=== PATIENT | female | born 1975 | race Two or more races ===

== ENCOUNTER 2021-05-15 15:23 | Emergency (ER) | payer OTHER ==
[~2021-05-15] VITALS: Ht 152.4 cm; Wt 90.9 kg
[2021-05-15 15:42] VITALS: BP 116/66
--- NOTE | 2021-05-15 16:16 | PHYS DOC ---
Past Medical History Smoking Status: Never Smoker Alcohol Use: None General Adult EDM: Chief Complaint: MECHANICAL FALL HPI: HPI: Patient is a 45-year-old female who presents to the emergency department for a fall. Patient reports that on April 26 she was at work and slipped and fell backwards. She reports that she did have a loss of consciousness following the episode. She is reporting low back pain and left-sided neck pain. She rates her pain 5 out of 10. No treatment prior to arrival. She reports that the pain is worse with movement. Patient reports that her boss was on vacation and came back to work and told her she must be evaluated for this. Patient denies any loss of bowel or bladder or saddle anesthesias. Patient is ambulatory with a steady gait. Review of Systems: Review of Systems: Constitutional: negative unless reported in HPI Eyes: negative unless reported in HPI HENT: negative unless reported in HPI Respiratory: negative unless reported in HPI Cardiovascular: negative unless reported in HPI GI: negative unless reported in HPI : negative unless reported in HPI Musculoskeletal: negative unless reported in HPI Integument: negative unless reported in HPI Neurologic: negative unless reported in HPI Endocrine: negative unless reported in HPI Lymphatic: negative unless reported in HPI Psychiatric: negative unless reported in HPI Heart Score: C/O Chest Pain: N/A Risk Factors: Risk Factors: DM, Current or recent (<one month) smoker, HTN, HLP, family history of CAD, obesity. Risk Scores: Score 0 - 3: 2.5% MACE over next 6 weeks - Discharge Home Score 4 - 6: 20.3% MACE over next 6 weeks - Admit for Clinical Observation Score 7 - 10: 72.7% MACE over next 6 weeks - Early Invasive Strategies Allergies: Allergies: Allergies Coded Allergies Type Severity Reaction Last Updated Verified No Known Drug Allergies 05/15/21 No Physical Exam: PE: Constitutional: Well developed, well nourished, no acute distress, non-toxic appearance. [] HENT: Normocephalic, atraumatic, bilateral external ears normal, oropharynx moist, no oral exudates, nose normal. [] Eyes: PERRL, EOMI, conjunctiva normal, no discharge. [] Neck: Normal range of motion, no bony spinal tenderness, left-sided paracervical spinal tenderness with palpation, no step-offs or deformities, supple, no stridor. [] Cardiovascular:Heart rate regular rhythm, no murmur [] Lungs & Thorax: Bilateral breath sounds clear to auscultation [] Abdomen: Bowel sounds normal, soft, no tenderness, no masses, no pulsatile masses. [] Skin: Warm, dry, no erythema, no rash. [] Back: Normal range of motion, no bony spinal tenderness Extremities: No tenderness, no cyanosis, no clubbing, ROM intact, no edema. [] Neurologic: Alert and oriented X 3, normal motor function, normal sensory function, no focal deficits noted. [] Psychologic: Affect normal, judgement normal, mood normal. [] EKG: EKG: [] Radiology/Procedures: Radiology/Procedures: []PROCEDURE: CT HEAD AND CERVICAL SPINE WO CT HEAD AND C-SPINE WO History: fall on 04/26/21, head injury, loc Comparison: None. Technique: Noncontrast CT of the head and cervical spine. Findings: CT HEAD: There is no evidence for intracranial mass or hemorrhage. There is no hydrocephalus or midline shift. No abnormal extra-axial fluid collections are present. No evidence of acute territorial infarction. The visualized paranasal sinuses and mastoid air cells are clear. The skull and scalp are within normal limits. CT CERVICAL SPINE: There is no evidence for fracture in the cervical spine. Alignment is normal. Disc spaces are preserved. No destructive osseous lesions are seen. Limited evaluation of the soft tissues of the neck and of the upper chest is unremarkable. Impression: 1. No acute intracranial findings. 2. No acute osseous abnormality in the cervical spine. ------- Exposure: One or more of the following individualized dose reduction techniques were utilized for this examination: 1. Automated exposure control 2. Adjustment of the mA and/or kV according to patient size 3. Use of iterative reconstruction technique. Electronically signed by: Sudhakar Logan MD (05/15/2021 5:57 PM) [facility] DICTATED and SIGNED BY: SUDHAKAR LOGAN MD DATE: 05/15/21 [id number] PROCEDURE: CT LUMBAR SPINE WO CONTRAST CT LUMBAR SPINE WO History: Fall on 04/26/2021, back pain. Technique: Noncontrast CT was performed of the lumbar spine. Multiplanar reconstructions were performed. Comparison: None Findings: There are small rudimentary ribs at T12. 5 nonrib-bearing lumbar vertebral segments. Rudimentary disc at S1-S2. Normal alignment. Vertebral body heights are maintained. No fracture. Moderate disc space narrowing at L4-L5 and mild facet hypertrophy at L4-L5. Circumferential disc bulge at this level narrows the thecal sac to approximately 7 mm. No significant foraminal stenoses. The paraspinal soft tissues are unremarkable. Impression: 1. Mild degenerative changes of the lumbar spine greatest at L4-L5. No acute osseous abnormality. Exposure: One or more of the following individualized dose reduction techniques were utilized for this examination: 1. Automated exposure control 2. Adjustment of the mA and/or kV according to patient size 3. Use of iterative reconstruction technique. Electronically signed by: Sudhakar Logan MD (05/15/2021 6:10 PM) [facility] DICTATED and SIGNED BY: SUDHAKAR LOGAN MD DATE: 05/15/21 [id number] 0 Course & Med Decision Making: Course & Med Decision Making Pertinent Labs and Imaging studies reviewed. (See chart for details) [] Patient presents to the emergency department following a fall that occurred 19 days ago with a loss of consciousness. Patient is reporting low back pain and left neck pain. She has no cauda equina signs. Imaging performed of her head/neck and lumbar spine. They did not show any acute findings. Patient advised to take anti-inflammatory medications and apply ice. I discussed with patient all findings and diagnostic testing as well as the need to follow-up with PCP for further evaluation and treatment or return to the ER if any new or worsening symptoms. Strict return precautions were also discussed at length. Patient voiced understanding and agreement with the plan. Patient is hemodynamically stable at the time of disposition. Renuka Disclaimer: Renuka Disclaimer: This electronic medical record was generated, in whole or in part, using a voice recognition dictation system. Departure Departure Impression: Primary Impression: Fall Qualified Codes: W19.XXXA - Unspecified fall, initial encounter Disposition: HOME / SELF CARE / HOMELESS Condition: GOOD Referrals: NON,STAFF (PCP) Patient Instructions: Back Pain, Adult, Fall Prevention and Home Safety Additional Instructions: You were seen in the emergency department following a fall with complaints of back and neck pain. Imaging was performed that showed no acute findings. Please take Tylenol and ibuprofen for any pain at home. You can also apply ice and heat. Follow-up with your primary care provider within a week. Return to the emergency department if you develop worsening of your pain, inability to walk, loss of bowel or bladder, numbness or tingling in your groin or down your legs. MIGDALIA SIMON [employer] STUDENT ADVISER May 15, 2021 16:16
--- NOTE | 2021-05-15 17:59 | RAD ---
CT HEAD AND C-SPINE WO History: fall on 04/26/21, head injury, loc Comparison: None. Technique: Noncontrast CT of the head and cervical spine. Findings: CT HEAD: There is no evidence for intracranial mass or hemorrhage. There is no hydrocephalus or midline shift. No abnormal extra-axial fluid collections are present. No evidence of acute territorial infarction. The visualized paranasal sinuses and mastoid air cells are clear. The skull and scalp are within normal limits. CT CERVICAL SPINE: There is no evidence for fracture in the cervical spine. Alignment is normal. Disc spaces are preserved. No destructive osseous lesions are seen. Limited evaluation of the soft tissues of the neck and of the upper chest is unremarkable. Impression: 1. No acute intracranial findings. 2. No acute osseous abnormality in the cervical spine. ------- Exposure: One or more of the following individualized dose reduction techniques were utilized for thi s examination: 1. Automated exposure control 2. Adjustment of the mA and/or kV according to patient size 3. Use of iterative reconstruction technique. Electronically signed by: Sudhakar Logan MD (05/15/2021 5:57 PM) [facility]
--- NOTE | 2021-05-15 18:13 | RAD ---
CT LUMBAR SPINE WO History: Fall on 04/26/2021, back pain. Technique: Noncontrast CT was performed of the lumbar spine. Multiplanar reconstructions were perform ed. Comparison: None Findings: There are small rudimentary ribs at T12. 5 nonrib-bearing lumbar vertebral segments. Rudimentary disc at S1-S2. Normal alignment. Vertebral body heights are maintained. No fracture. Moderate disc space narrowing at L4-L5 and mild facet hypertrophy at L4-L5. Circumferential disc bulg e at this level narrows the thecal sac to approximately 7 mm. No significant foraminal stenoses. The paraspinal soft tissues are unremarkable. Impression: 1. Mild degenerative changes of the lumbar spine greatest at L4-L5. No acute osseous abnormality. Exposure: One or more of the following individualized dose reduction techniques were utilized for thi s examination: 1. Automated exposure control 2. Adjustment of the mA and/or kV according to patient size 3. Use of iterative reconstruction technique. Electronically signed by: Sudhakar Logan MD (05/15/2021 6:10 PM) [facility]
== END 2021-05-15 18:28 | disposition home or self-care (01) ==
LOC: ER 15:23
DX: M54.50 Low back pain, unspecified (principal); M54.2 Cervicalgia; R51.9 Headache, unspecified; G89.11 Acute pain due to trauma; W01.0XXA Fall on same level from slipping, tripping and stumbling without subsequent striking against object, initial encounter; Y93.89 Activity, other specified; Y92.89 Other specified places as the place of occurrence of the external cause; Y99.8 Other external cause status
CPT/HCPCS: 70450; 72125; 72131; 81025; 99284-25